=== PATIENT | male | born 1960 | race Caucasian/White ===

== ENCOUNTER 2017-09-17 10:43 | Emergency (ER) | payer BC ==
[2017-09-17 11:00] VITALS: BP 142/76
--- NOTE | 2017-09-17 11:50 | EDM.PDOC ---
ED HPI GENERAL MEDICAL PROBLEM - General Chief Complaint: Lower Extremity Injury/Pain Stated Complaint: RIGHT LEG ISSUES Time Seen by Provider: 09/17/17 11:28 Source of Information: Reports: Patient History Limitations: Reports: No Limitations - History of Present Illness INITIAL COMMENTS - FREE TEXT/NARRATIVE: Patient is a 57 year old male with extensive PVD history. 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 The right leg he has had in total 6 DVTS 2nd to occlusion of the stent to the femoral artery in 8 months. States this a.m. awoke with increasing pain to the right lower leg. Pain is worsened with ambulation. Pain is most intense to the lateral border of the calf with exertion. States discomfort is similar to previous episodes. Has developed some slight numbness to the right toes and faint mottling to the inner aspects of the ankle. States I will not beable to obtain distal doppler pulses. Pain is currently a 4/10. He has been in contact with his vascular surgeon Dr. Wilcox in the [facility]. He is requesting ultrasound to evaluate for clot. IF clot present patient will be driving to the [facility] today to have femoral popliteal bypass in the next few days. Last episode of occlusion of the distal femoral stent was August of 2017. THis was to the right superficial femoral artery. 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 Patient has a fake bladder an electric pump within his scrotum to allow him to urinate. THsi was placed June 2016. He continues to take eliquis 5 mg in the a.m., plavix 75mg qd, ASA 81mg qd, and lovenox 100mg b.i.d. He denies any SOB, CP, dizziness, fever, chills, n/v, abdominal pain, and or any additional complaints. Right Lower Leg Pain Score (Numeric/FACES): 6 - Related Data Allergies Allergy/AdvReac Type Severity Reaction Status Date / Time Penicillins Allergy Anaphylactic Verified 09/17/17 10:54 Shock Home Meds: Home Meds . [Unable to Verify Home Med List] 08/11/15 [History] Past Medical History Cardiovascular History: Reports: Hypertension, [place] Other Cardiovascular History: AAA 4cm Gastrointestinal History: Reports: GERD Endocrine/Metabolic History: Reports: Diabetes, Type II Oncologic (Cancer) History: Reports: Bladder, Prostate - Past Surgical History Male Surgical History: Reports: Prostate Biopsy Musculoskeletal Surgical History: Reports: Hip Replacement Other Oncologic Surgeries/Procedures: pancreatic mass Social & Family History - Tobacco Use Smoking Status *Q: Former Smoker Years of Tobacco use: 40 Packs/Tins Daily: 1 Used Tobacco, but Quit: Yes Month/Year Tobacco Last Used: 2015 - Caffeine Use Caffeine Use: Reports: Coffee - Recreational Drug Use Recreational Drug Use: No Review of Systems - Review of Systems Review Of Systems: ROS reveals no pertinent complaints other than HPI. ED EXAM, GENERAL - Physical Exam Exam: See Below Exam Limited By: No Limitations General Appearance: Alert, WD/WN, No Apparent Distress Ears: Hearing Grossly Normal Nose: Normal Inspection Throat/Mouth: Normal Voice, No Airway Compromise Neck: Normal Inspection, Supple Respiratory/Chest: No Respiratory Distress, Lungs Clear, Normal Breath Sounds, No Accessory Muscle Use Cardiovascular: Normal Peripheral Pulses, Regular Rate, Rhythm, No Murmur Peripheral Pulses: 0: Posterior Tibial (R), Dorsalis Pedis (R), 3+: Femoral (L) , Posterior Tibial (L), Dorsalis Pedis (L), 4+: Femoral (R) GI/Abdominal: Normal Bowel Sounds, Soft, Non-Tender, No Organomegaly, No Distention Extremities: Normal Inspection, Other (No increased swelling to the right leg.) Neurological: Alert, Oriented, CN II-XII Intact, Normal Cognition, Normal Gait, Other (No motor deficits. The numbness noted to the right toes. No significant change in temperature noted between the left and right foot.) Psychiatric: Normal Affect, Normal Mood Skin Exam: Warm, Dry, Intact, Other (Questionable faint mottling noted to the left side of the right ankle.) Course - Vital Signs Last Recorded V/S: Last Vital Signs Temp 97.8 F 09/17/17 10:54 Pulse 96 09/17/17 10:54 Resp 12 09/17/17 10:54 BP 142/76 H 09/17/17 10:54 Pulse Ox 97 09/17/17 10:54 - Orders/Labs/Meds Labs: Laboratory Tests 09/17/17 09/17/17 09/17/17 Range/Units 11:05 11:50 11:50 WBC 8.14 (4.23-9.07) K/mm3 RBC 4.80 (4.63-6.08) M/mm3 Hgb 15.5 (13.7-17.5) gm/L Hct 44.8 (40.1-51.0) % MCV 93.3 H (79.0-92.2) fl MCH 32.3 H (25.7-32.2) pg MCHC 34.6 (32.2-35.5) g/dl RDW Std Deviation 46.0 H (35.1-43.9) fL Plt Count 212 (163-337) K/mm3 MPV 9.2 L (9.4-12.3) fl Neut % (Auto) 58.4 (34.0-67.9) % Lymph % (Auto) 27.3 (21.8-53.1) % [place] % (Auto) 8.8 (5.3-12.2) % Eos % (Auto) 4.9 (0.8-7.0) Baso % (Auto) 0.5 (0.1-1.2) % Neut # (Auto) 4.75 (1.78-5.38) K/mm3 Lymph # (Auto) 2.22 (1.32-3.57) K/mm3 [place] # (Auto) 0.72 (0.30-0.82) K/mm3 Eos # (Auto) 0.40 (0.04-0.54) K/mm3 Baso # (Auto) 0.04 (0.01-0.08) K/mm3 PT 11.2 (9.5-12.1) SECONDS INR 1.03 APTT 29 (24-31) SECONDS D-Dimer, Quantitative 1.07 H (0.19-0.50) mg/L Sodium (136-145) mEq/L Potassium (3.5-5.1) mEq/L Chloride (98-107) mEq/L Carbon Dioxide (21-32) mEq/L Anion Gap (5-15) BUN (7-18) mg/dL Creatinine (0.7-1.3) mg/dL Est Cr Clr Drug Dosing mL/min Estimated GFR (MDRD) (>60) mL/min BUN/Creatinine Ratio (14-18) Glucose (74-106) mg/dL Calcium (8.5-10.1) mg/dL Total Bilirubin (0.2-1.0) mg/dL AST (15-37) U/L ALT (16-63) U/L Alkaline Phosphatase (46-116) U/L C-Reactive Protein (<1.0) mg/dL Total Protein (6.4-8.2) g/dl Albumin (3.4-5.0) g/dl Globulin gm/dL Albumin/Globulin Ratio (1-2) 09/17/17 09/17/17 Range/Units 11:50 11:50 WBC (4.23-9.07) K/mm3 RBC (4.63-6.08) M/mm3 Hgb (13.7-17.5) gm/L Hct (40.1-51.0) % MCV (79.0-92.2) fl MCH (25.7-32.2) pg MCHC (32.2-35.5) g/dl RDW Std Deviation (35.1-43.9) fL Plt Count (163-337) K/mm3 MPV (9.4-12.3) fl Neut % (Auto) (34.0-67.9) % Lymph % (Auto) (21.8-53.1) % [place] % (Auto) (5.3-12.2) % Eos % (Auto) (0.8-7.0) Baso % (Auto) (0.1-1.2) % Neut # (Auto) (1.78-5.38) K/mm3 Lymph # (Auto) (1.32-3.57) K/mm3 [place] # (Auto) (0.30-0.82) K/mm3 Eos # (Auto) (0.04-0.54) K/mm3 Baso # (Auto) (0.01-0.08) K/mm3 PT (9.5-12.1) SECONDS INR APTT (24-31) SECONDS D-Dimer, Quantitative (0.19-0.50) mg/L Sodium 142 (136-145) mEq/L Potassium 3.7 (3.5-5.1) mEq/L Chloride 104 (98-107) mEq/L Carbon Dioxide 27 (21-32) mEq/L Anion Gap 14.7 (5-15) BUN 14 (7-18) mg/dL Creatinine 1.1 (0.7-1.3) mg/dL Est Cr Clr Drug Dosing 81.32 mL/min Estimated GFR (MDRD) > 60 (>60) mL/min BUN/Creatinine Ratio 12.7 L (14-18) Glucose 100 (74-106) mg/dL Calcium 9.4 (8.5-10.1) mg/dL Total Bilirubin 0.5 (0.2-1.0) mg/dL AST 15 (15-37) U/L ALT 17 (16-63) U/L Alkaline Phosphatase 110 (46-116) U/L C-Reactive Protein < 0.2 (<1.0) mg/dL Total Protein 7.0 (6.4-8.2) g/dl Albumin 3.9 (3.4-5.0) g/dl Globulin 3.1 gm/dL Albumin/Globulin Ratio 1.3 (1-2) Meds: Medications Discontinued Medications Generic Name Dose Route Start Last Admin Trade Name Freq PRN Reason Stop Dose Admin Sodium Chloride 1,000 mls @ 250 mls/hr 09/17/17 12:38 09/17/17 13:25 Normal Saline IV 09/17/17 16:37 Not Given ONETIME ONE Sodium Chloride 10 ml 09/17/17 12:36 Saline Flush FLUSH ASDIRECTED PRN Keep Vein Open - Re-Assessments/Exams Free Text/Narrative Re-Assessment/Exam: Order VL duplex of the arteries of the right leg. Initial labs include: CBC, chem 14, CRP, and coag studies. Unable to Doppler pulses to the affected extremity. On examination both feet are cool. Toes are slightly colder than the left. Numbness noted to the right toes with some slight mottling noted to the inner aspect of the right ankle. Patient's been in contact with his vascular surgeon. Plan is to have ultrasound obtained and if occlusion present he will drive himself to the [facility] in [place] for intervention. He did the same thing this past August. Patient had acute thrombosis of the right superficial femoral artery. Patient received IV lytics and spent a few days in the ICU. IF occluded again he will have femoral popliteal bypass with reverse GSV. 09/17/17 12:41 CBC and chemistry panel were essentially normal. D-dimer mildly elevated at 1.07. Initially ordered in error VL duplex artery of the upper extremity and this should've been lower extremity. This was canceled. On review of orders we do not have a lower extremity arterial ultrasound. NExt study of choice would be a CTA of the right lower extremity with follow-through. IV fluids were ordered. Patient does not want to have IV contrast at this time. I did speak with the nanoscience technician he is not sure on how to order. He has completed this in the past. He will stop by after completing a ultrasound. 1314 Had difficulty in finding a appropriate order. Will order CV lower arterial ext. 09/17/17 14:51 Ultrasound duplex bilateral lower extremity arteries impression: No flow is present within the right femoral artery stent. Decreased flow noted with in the right popliteal and peroneal arteries. Imaging the lower extremity arteries in the left are normal. Per nanoscience technician there is collateral circulation present. 1452 Reassessment, patient's discomfort is unchanged. States normally these do not change for at least 3 days. I have advised that being transferred to [place] would be is most appropriate treatment at this time. There is a high likelihood of traveling to [place] maybe hazardous with snow storm approaching. Patient states he refuses to be transferred to [place] and [facility] for evaluation and treatment. States this is his 7th time for occlusion. Dr. Wilcox will be performing harvest of the greater saphenous vein of the left leg with femoral popliteal bypass on the right. Patient is well aware of the risk of not addressing the clot within the femoral artery in a prompt manner. There is a chance he may lose his leg if definitive therapy is not conducted soon. He is planning on traveling to [place] today then to [place]. AMA form completed. Discharge instructions as documented. Departure - Departure Time of Disposition: 15:00 Disposition: Home, Self-Care 01 Condition: Good Clinical Impression: Femoral artery occlusion, right, Right leg pain - Discharge Information Referrals: PCP,Not In Area [Primary Care Provider] - Forms: ED Department Discharge, Refusal of Care AMA Additional Instructions: As discussed no flow is present within the right femoral artery stent. I advised immediate evaluation by vascular surgeon and or interventional radiologists in [facility] would provide your best outcome. As stated you will be traveling to [place] today and [place] tomorrow. If at any time during this experience worsening pain or change in color please seek medical treatment immediately at the closest hospital.
[2017-09-17] MEDS ORDERED: Sodium Chloride 0.9% 10 ML Syringe FLUSH PRN (12:36)
[2017-09-17] MEDS ORDERED: Sodium Chloride 0.9% 1,000 ML IV ONE (12:38)
--- NOTE | 2017-09-18 14:55 | US ---
Bilateral lower extremity arterial ultrasound: Duplex and color flow imaging was obtained of the right and left lower extremities. Dorsalis pedis arteries were not imaged on both sides. Right side: Stent is identified bypassing the superficial femoral artery. Stent appears occluded and shows no blood flow. Right common femoral artery is patent. Decreased velocity measurements within the popliteal, posterior tibial and peroneal veins are noted compatible with the stent occlusion. Left side: Left common femoral vein, superficial femoral vein, popliteal, posterior tibial and peroneal veins appear patent without significant stenosis being identified. Impression: 1. Stent bypassing the right superficial femoral artery with stent appearing occluded. This causes decreased velocity measurements within the distal arteries. 2. No occlusion is seen within the left lower extremity. No significant stenosis seen in the left side. Diagnostic code #3 Agree with preliminary report issued by [facility] [employer] ([facility] preliminary report dictated on 09/17/17, 3:30 PM Central Time)
== END 2017-09-17 15:30 | disposition left against medical advice (07) ==
LOC: JD.ED 10:43
DX: I70.201 Unspecified atherosclerosis of native arteries of extremities, right leg (principal); I10 Essential (primary) hypertension; E11.9 Type 2 diabetes mellitus without complications; Z87.891 Personal history of nicotine dependence; Z86.718 Personal history of other venous thrombosis and embolism; Z88.0 Allergy status to penicillin
CPT/HCPCS: 36415; 80053; 85025; 85379; 85610; 85730; 86140; 93925; 93925-26; 99284-25

== ENCOUNTER 2018-01-15 10:30 | Emergency (ER) | payer BC ==
--- NOTE | 2018-01-15 10:56 | EDM.PDOC ---
ED HPI GENERAL MEDICAL PROBLEM - General Chief Complaint: Cardiovascular Problem Stated Complaint: SENT BY [facility] Time Seen by Provider: 01/15/18 10:41 Source of Information: Reports: Patient, Provider History Limitations: Reports: No Limitations - History of Present Illness INITIAL COMMENTS - FREE TEXT/NARRATIVE: The patient presents with numbness to his right lower leg. This started a few days ago. He has a history of aortic replacement at [facility] and aorto iliac bypass. Three weeks ago he had another aorto iliac bypass at [facility]. He had an US done a few days ago that showed a hemotoma in his groin area on the right. He also has numbness for a few days to his right lower leg. He does not have a cool leg. His surgeon is worried he may have an occlusion of the bypass. They wanted him to get a CT angio of his abdomen and pelvis with run off. He has no fever, chills, chest pain, shortness of breath, abdominal pain, nausea, vomiting , diarrhea or pain in his leg. Onset: Gradual Duration: Day(s): Location: Reports: Lower Extremity, Right Quality: Reports: Other (Numbness) Severity: Moderate Improves with: Reports: None Worsens with: Reports: None Associated Symptoms: Reports: No Other Symptoms Right Leg Pain Score (Numeric/FACES): 6 - Related Data Allergies Allergy/AdvReac Type Severity Reaction Status Date / Time Penicillins Allergy Anaphylactic Verified 01/15/18 10:48 Shock Home Meds: Home Meds . [Unable to Verify Home Med List] 08/11/15 [History] Past Medical History Cardiovascular History: Reports: Hypertension, [place] Other Cardiovascular History: AAA 4cm Gastrointestinal History: Reports: GERD Endocrine/Metabolic History: Reports: Diabetes, Type II Oncologic (Cancer) History: Reports: Bladder, Prostate - Past Surgical History Male Surgical History: Reports: Prostate Biopsy Musculoskeletal Surgical History: Reports: Hip Replacement Other Oncologic Surgeries/Procedures: pancreatic mass Social & Family History - Caffeine Use Caffeine Use: Reports: Coffee ED ROS GENERAL - Review of Systems Review Of Systems: See Below Constitutional: Reports: No Symptoms HEENT: Reports: No Symptoms Respiratory: Reports: No Symptoms Cardiovascular: Reports: No Symptoms Endocrine: Reports: No Symptoms GI/Abdominal: Reports: No Symptoms : Reports: No Symptoms Musculoskeletal: Reports: Other (Right leg numbness) Neurological: Reports: Numbness (to the right lowe leg) ED EXAM, GENERAL - Physical Exam Exam: See Below Exam Limited By: No Limitations General Appearance: Alert, No Apparent Distress Ears: Normal External Exam Nose: Normal Inspection Head: Atraumatic, Normocephalic Neck: Normal Inspection Respiratory/Chest: No Respiratory Distress, Lungs Clear, Normal Breath Sounds Cardiovascular: Regular Rate, Rhythm, No Edema, No Murmur GI/Abdominal: Soft, Non-Tender, No Organomegaly, No Mass Extremities: Other (Good color to his right leg. Capillary refill is 3 seconds. My nurse was able to get a pulse by doplar. He is numb from just below the knee on the right leg to his foot.) Course - Vital Signs Last Recorded V/S: Last Vital Signs Temp 97.2 F 01/15/18 10:48 Pulse 85 01/15/18 10:48 Resp 18 01/15/18 10:48 BP 156/96 H 01/15/18 10:48 Pulse Ox 100 01/15/18 10:48 - Orders/Labs/Meds Orders: Active Orders 24 hr Category Date Time Status Cardiac Monitoring [RC] . DIRECTED Care 01/15/18 10:52 Active Peripheral IV Care [RC] . DIRECTED Care 01/15/18 10:53 Active Ang Abdomen Aorta w Bi Runoff [CT] Stat Exams 01/15/18 10:53 Taken Peripheral IV Insertion Adult [OM.PC] Stat Oth 01/15/18 10:52 Ordered Labs: Laboratory Tests 01/15/18 01/15/18 01/15/18 Range/Units 11:00 11:00 11:00 WBC 7.06 (4.23-9.07) K/mm3 RBC 4.36 L (4.63-6.08) M/mm3 Hgb 14.2 (13.7-17.5) gm/L Hct 42.2 (40.1-51.0) % MCV 96.8 H (79.0-92.2) fl MCH 32.6 H (25.7-32.2) pg MCHC 33.6 (32.2-35.5) g/dl RDW Std Deviation 50.1 H (35.1-43.9) fL Plt Count 220 (163-337) K/mm3 MPV 9.0 L (9.4-12.3) fl Neut % (Auto) 53.2 (34.0-67.9) % Lymph % (Auto) 30.7 (21.8-53.1) % [place] % (Auto) 10.1 (5.3-12.2) % Eos % (Auto) 5.5 (0.8-7.0) Baso % (Auto) 0.4 (0.1-1.2) % Neut # (Auto) 3.75 (1.78-5.38) K/mm3 Lymph # (Auto) 2.17 (1.32-3.57) K/mm3 [place] # (Auto) 0.71 (0.30-0.82) K/mm3 Eos # (Auto) 0.39 (0.04-0.54) K/mm3 Baso # (Auto) 0.03 (0.01-0.08) K/mm3 PT 10.3 (9.5-12.1) SECONDS INR 0.94 APTT 27 (24-31) SECONDS Sodium 142 (136-145) mEq/L Potassium 3.9 (3.5-5.1) mEq/L Chloride 104 (98-107) mEq/L Carbon Dioxide 29 (21-32) mEq/L Anion Gap 12.9 (5-15) BUN 16 (7-18) mg/dL Creatinine 1.0 (0.7-1.3) mg/dL Est Cr Clr Drug Dosing 89.46 mL/min Estimated GFR (MDRD) > 60 (>60) mL/min BUN/Creatinine Ratio 16.0 (14-18) Glucose 98 (74-106) mg/dL Calcium 9.0 (8.5-10.1) mg/dL Total Bilirubin 0.5 (0.2-1.0) mg/dL AST 13 L (15-37) U/L ALT 22 (16-63) U/L Alkaline Phosphatase 94 (46-116) U/L Total Protein 7.4 (6.4-8.2) g/dl Albumin 4.0 (3.4-5.0) g/dl Globulin 3.4 gm/dL Albumin/Globulin Ratio 1.2 (1-2) Meds: Medications Discontinued Medications Generic Name Dose Route Start Last Admin Trade Name Freq PRN Reason Stop Dose Admin Sodium Chloride 1,000 mls @ 125 mls/hr 01/15/18 11:00 01/15/18 11:13 Normal Saline IV 125 mls/hr ASDIRECTED CHILO Administration Sodium Chloride 100 mls @ 4 mls/sec 01/15/18 11:22 01/15/18 11:28 Normal Saline IV 01/15/18 11:23 4 mls/sec ONETIME ONE Administration Iopamidol 100 ml 01/15/18 11:22 01/15/18 11:28 Isovue-370 (76%) IVPUSH 01/15/18 11:23 100 ml ONETIME ONE Administration Iopamidol 40 ml 01/15/18 11:22 01/15/18 11:28 Isovue-370 (76%) IVPUSH 01/15/18 11:23 40 ml ONETIME ONE Administration Sodium Chloride 10 ml 01/15/18 10:52 01/15/18 13:40 Saline Flush FLUSH 10 ml ASDIRECTED PRN Administration Keep Vein Open - Re-Assessments/Exams Free Text/Narrative Re-Assessment/Exam: 01/15/18 11:50 I have ordered an IV saline lock, labs and a CT angio of his abdomen and pelvis with run off. 01/15/18 16:18 His CBC and CMP look good. His CT shows status post aortic iliac bypass. Right common femoral artery is intact. Right superficial femoral artery is intact. No occlusion or significant stenosis of the [place] arteries. However there is a thrombosed stent in the medial aspect of the right thigh. A few loops of mildly dilated small bowel may represent ileius or obstruction. The patient has no abdominal pain. Dr Garcia from [facility] called earlier today to let me know the patient was coming. It took awhile to get the read and I called Fabi Garcia. It also took awhile to get the films to [facility]. He was able to look at them and there was no blockage to the work they did. They will inform the main surgeon on Tuesday. The patient went home before the from [facility] called me back. I called to let him know what he said. Departure - Departure Time of Disposition: 14:50 Disposition: Home, Self-Care 01 Condition: Good Clinical Impression: Numbness in right leg Referrals: PCP,Not In Area [Primary Care Provider] - Forms: ED Department Discharge Additional Instructions: I will call you when they call me back. Please return if you are worse. - My Orders Last 24 Hours: My Active Orders 01/15/18 10:52 Cardiac Monitoring [RC] . DIRECTED Peripheral IV Insertion Adult [OM.PC] Stat 01/15/18 10:53 Peripheral IV Care [RC] . DIRECTED Ang Abdomen Aorta w Bi Runoff [CT] Stat - Assessment/Plan Last 24 Hours: My Active Orders 01/15/18 10:52 Cardiac Monitoring [RC] . DIRECTED Peripheral IV Insertion Adult [OM.PC] Stat 01/15/18 10:53 Peripheral IV Care [RC] . DIRECTED Ang Abdomen Aorta w Bi Runoff [CT] Stat
[2018-01-15] MEDS ORDERED: Sodium Chloride 0.9% 1,000 ML IV SCH (11:00)
[2018-01-15 11:03] VITALS: BP 156/96
[2018-01-15] MEDS: Sodium Chloride 0.9% 10 ML Syringe FLUSH PRN ×2 (11:13→13:40)
[2018-01-15] MEDS ORDERED: Sodium Chloride 0.9% 100 ML IV ONE (11:22)
[2018-01-15] MEDS ORDERED: Iopamidol 755 MG/ML 50 ML Bottle IVPUSH ONE (11:22)
[2018-01-15] MEDS ORDERED: Iopamidol 755 Mg/ML 100 ML Bottle IVPUSH ONE (11:22)
--- NOTE | 2018-01-16 10:51 | CT ---
CT abdomen and pelvis Technique: Multiple axial sections were obtained from above the dome of the diaphragm inferiorly through the pubic symphysis. Intravenous contrast was utilized. Study performed as an aortoiliac angiogram exam. Findings: Aortoiliac graft material below the renal vessels from prior aortic aneurysm repair. Mild atherosclerotic change is seen within other portions of the aorta. Single renal arteries are seen which appear patent. Celiac axis and superior mesenteric artery show mild atherosclerotic change without focal stenosis. Iliac arteries show atherosclerotic change without focal stenosis. Other findings: Liver shows no focal abnormality. Spleen appears within normal limits. Adrenal glands show no nodule. Pancreas is within normal limits. Kidneys show symmetric contrast enhancement without hydronephrosis or mass. No retroperitoneal adenopathy or mesenteric abnormalities are seen. No pelvic mass or adenopathy is seen. No bowel dilatation is felt to be present. Penile implant is felt to be present. Artifact noted from right hip prosthesis. Scattered degenerative change is seen throughout the spine. Impression: 1. Aortic and iliac graft from previous aneurysm repair. 2. Atherosclerotic change without focal areas of stenosis or vascular occlusion. 3. Other incidental findings as noted above. Diagnostic code #2 I agree with preliminary report issued by [facility] ([facility] report finalized on 01/15/18, 2:12 PM Central Time) Runoff Technique: Multiple axial sections were obtained through the right and left lower extremities during the arterial phase. Comparison: No previous study. Findings: Right-sided stent is seen which is occluded. Common femoral and superficial femoral arteries appear patent on both sides. Popliteal arteries are patent on both sides. Two-vessel runoff noted into the ankle on the right side. There is poor flow being seen within a portion of the anterior tibial artery which appears reconstituted at the ankle. Three-vessel runoff is noted on the left side. Impression: 1. Occluded right sided graft. 2. Two-vessel runoff on the right with reconstitution of the anterior tibial artery at the ankle. Three-vessel runoff on the left side is seen. 3. Common femoral arteries and superficial femoral arteries are patent. Diagnostic code #3 I agree with preliminary report issued by [facility] ([facility] report finalized on 01/15/18, 2:12 PM Central Time)
== END 2018-01-15 14:52 | disposition home or self-care (01) ==
LOC: JD.ED 10:30
DX: R20.0 Anesthesia of skin (principal); I10 Essential (primary) hypertension; I25.2 Old myocardial infarction; E11.9 Type 2 diabetes mellitus without complications; Z95.828 Presence of other vascular implants and grafts; Z96.649 Presence of unspecified artificial hip joint; Z88.0 Allergy status to penicillin
CPT/HCPCS: 36415; 75635; 80053; 85025; 85610; 85730; 96360; 96361; 99284; J7030; J7040; J7050; Q9967